=== PATIENT | female | born 1975 | race Caucasian/White ===

== ENCOUNTER → 2017-11-29 | Outpatient (CLI) | payer MEDICAID ==
[~2017-11-29] MED LIST: CIPR500T87 PO; FENT1PAT77 TD; GABA600T2 PO; HYDR-3307 PO; HYDR4TAB48 PO; HYDR50TA13 PO; LEVO25TA2 PO; METH5TAB2 PO; NYST1000 PO; OMEP-110 PO; ONDA4TAB10 PO; OXYC5TAB3 PO; PANT40TA3 PO; PARO12.53 PO; PREG75CA PO; SUCR1ORA11 PO; SUCR1ORA5 PO; TRAZ100T15 PO; WARF10TA PO
== END ==
LOC: CFH 13:25
PROVIDERS: ATTEND Nurse Practitioner Critical Care Medicine
DX: M43.27 Fusion of spine, lumbosacral region (principal); M54.16 Radiculopathy, lumbar region
CPT/HCPCS: 72148

== ENCOUNTER → 2017-11-30 | Outpatient (CLI) | payer MEDICAID | END | disposition home or self-care (01) | LOC: CFH 13:06 | PROVIDERS: ATTEND Nurse Practitioner Critical Care Medicine | DX: M54.16 Radiculopathy, lumbar region (principal) | CPT/HCPCS: 72110 ==

== ENCOUNTER → 2018-04-01 | Outpatient (CLI) | payer MEDICAID ==
[~2018-04-01] MED LIST changes: +TRAZ-137 PO; -TRAZ100T15 PO
== END | disposition home or self-care (01) ==
LOC: RAD 14:33
PROVIDERS: ATTEND Registered Nurse
DX: M43.27 Fusion of spine, lumbosacral region (principal)
CPT/HCPCS: 72131